=== PATIENT | female | born 1960 | race African-American/Black ===

== ENCOUNTER 2017-10-12 09:08 | Emergency (ER) | payer SELFPAY ==
[~2017-10-12] VITALS: Ht 170.2 cm; Wt 134.0 kg
[2017-10-12] MEDS ORDERED: KETOROLAC 60MG/2ML VIAL IM ONE (11:00)
[2017-10-12 13:40] VITALS: BP 130/68
== END 2017-10-12 13:48 | disposition home or self-care (01) ==
LOC: ER 10:06
DX: M54.31 Sciatica, right side (principal)
CPT/HCPCS: 93971; 96372; 99284; J1885

== ENCOUNTER 2017-12-14 09:09 | Emergency (ER) | payer OTHER ==
[~2017-12-14] VITALS: Ht 172.7 cm; Wt 83.0 kg
[~2017-12-14 09:09] MED LIST: DICL75TA5 MT; GABA-529 MT
[2017-12-14] MEDS ORDERED: SODIUM CHLORIDE 0.9% 1,000 ML IV ONE (10:02)
[2017-12-14] MEDS ORDERED: ACETAMINOPHEN 325MG TABLET PO STA (10:02)
[2017-12-14] MEDS ORDERED: KETOROLAC 30MG/ML VIAL IV STA (10:02)
[2017-12-14 10:19] LABS: HEMATOCRIT. 39.7 % (36.0-48.0); HEMOGLOBIN. 12.9 g/dL (12.0-16.0); MEAN CORPUSCULAR HEMOGLOBIN 25.4 pg (28.0-32.0); MEAN CORPUSCULAR VOLUME 77.8 fL (81.0-99.0); MEAN PLATELET VOLUME 9.5 fl (7.4-10.4); PLATELET 156 x1000/uL (130-400); RED CELL DISTRIBUTION WIDTH 16.6 % (11.6-14.6)
[2017-12-14 10:28] LABS: CHLORIDE 104 mEq/L (98-107); INR 1.1; PROTHROMBIN TIME 11.6 sec (9.4-11.6)
[2017-12-14 11:23] LABS: PLATELET ESTIMATE NORMAL
[2017-12-14 11:54] LABS: CLARITY URINE CLEAR (CLEAR); COLOR URINE ORANGE (YELLOW); KETONES URINE 1+ (NEGATIVE); LEUKOCYTE ESTERASE URINE 1+ (NEGATIVE); NITRITE URINE NEGATIVE (NEGATIVE); OCCULT BLOOD URINE NEGATIVE (NEGATIVE); PH URINE 5.5 (4.5-8.0); PROTEIN URINE 1+ (NEGATIVE); SPECIFIC GRAVITY URINE 1.025 (1.005-1.030)
[2017-12-14 13:04] VITALS: BP 149/80
== END 2017-12-14 13:15 | disposition home or self-care (01) ==
LOC: ER 09:09
DX: B34.9 Viral infection, unspecified (principal); I10 Essential (primary) hypertension; E78.00 Pure hypercholesterolemia, unspecified; M54.30 Sciatica, unspecified side; F17.200 Nicotine dependence, unspecified, uncomplicated
CPT/HCPCS: 36415; 71045; 80053; 81003; 83605; 85025; 85610; 87040; 87086; 93005; 96374; 99285; J1885; J7030; J7040

== ENCOUNTER 2017-12-17 13:50 | Inpatient (IN) | payer OTHER ==
[~2017-12-17] VITALS: Ht 172.7 cm; Wt 123.0 kg
[2017-12-17] MEDS ORDERED: ONDANSETRON HCL 4MG/2ML VIAL IV STA (14:25)
[2017-12-17] MEDS ORDERED: ASPIRIN 81MG TABLET PO ONE (14:30)
[2017-12-17 15:12] LABS: HEMATOCRIT. 36.8 % (36.0-48.0); MEAN CORPUSCULAR HEMOGLOBIN 25.4 pg (28.0-32.0); MEAN CORPUSCULAR VOLUME 77.9 fL (81.0-99.0); RED BLOOD CELL COUNT 4.73 mill/uL (4.2-5.4); RED CELL DISTRIBUTION WIDTH 16.5 % (11.6-14.6)
[2017-12-17 15:18] LABS: CHLORIDE 102 mEq/L (98-107)
[2017-12-17 15:22] LABS: ETHANOL BLOOD < 10 mg/dL
[2017-12-17 15:29] LABS: CREATINE KINASE 123 IU/L (26-192)
[2017-12-17] MEDS ORDERED: IOHEXOL-350 100 ML BOTTLE ONE (16:43)
[2017-12-17 17:24] LABS: INR 1.1; PARTIAL THROMBOPLASTIN TIME 25.9 sec (23.4-31.0); PROTHROMBIN TIME 11.9 sec (9.4-11.6)
[2017-12-17] MEDS ORDERED: LEVOFLOXACIN 750MG PREMIX 150 ML IV ONE (18:30)
[2017-12-17 20:00] VITALS: BP 116/66
[2017-12-17 20:20] VITALS: BP 116/66
[2017-12-17] MEDS ORDERED: ACET650S22 PO (20:44)
[2017-12-17] MEDS ORDERED: SULF-288 PO (20:44)
[2017-12-17] MEDS ORDERED: MAGNESIUM/ALUMINUM HYDROXIDE/SIMETHICONE 30ML UDC PO PRN (20:45)
[2017-12-17] MEDS ORDERED: IPRATROPIUM/ALBUTEROL 0.5-3(2.5)MG/3ML NEB INH PRN (20:45)
[2017-12-17] MEDS ORDERED: CLONIDINE 0.1MG TABLET PO PRN (20:45)
[2017-12-17] MEDS ORDERED: ACETAMINOPHEN 325MG TABLET PO PRN (20:45)
[2017-12-17] MEDS ORDERED: DOCUSATE SODIUM 100MG CAPSULE PO PRN (20:45)
[2017-12-17] MEDS ORDERED: ONDANSETRON 4MG ODT PO PRN (20:45)
[2017-12-17 21:19] LABS: HEPATITIS B SURFACE ANTIGEN NEGATIVE
[2017-12-17 21:47] LABS: HEPATITIS B CORE AB IGM NEGATIVE
[2017-12-17 21:48] LABS: HEPATITIS A AB IGM NEGATIVE (NEGATIVE)
[2017-12-17] MEDS ORDERED: DICL75TA5 PO (22:59)
[2017-12-17] MEDS ORDERED: GABA-529 PO (22:59)
[2017-12-17] MEDS ORDERED: ATOR20TA65 PO (22:59)
[2017-12-17] MEDS ORDERED: DIAZ5TAB4 PO (22:59)
[2017-12-17] MEDS ORDERED: AMLO5TAB88 PO (22:59)
[2017-12-17] MEDS ORDERED: METH4TAB17 PO (22:59)
[2017-12-17] MEDS ORDERED: ASPI-1159 PO (22:59)
[2017-12-17] MEDS ORDERED: D-ME473S8 PO (23:23)
[2017-12-17] MEDS ORDERED: NAPR-681 PO (23:23)
[2017-12-17] MEDS ORDERED: NIAC100T3 PO (23:23)
[2017-12-17] MEDS ORDERED: LEVO50TA PO (23:23)
[2017-12-17] MEDS ORDERED: IBUP-2030 PO (23:23)
[2017-12-17] MEDS ORDERED: TLXL5 PO (23:25)
[2017-12-17] MEDS: HYDROCODONE/ACETAMINOPHEN 5/325MG TABLET PO PRN (23:35)
[2017-12-17 23:45] LABS: CREATINE KINASE 156 IU/L (26-192)
[2017-12-17 23:49] LABS: CREATINE KINASE MB FRACTION 1.9 ng/mL (0.5-3.6)
[2017-12-18] VITALS: BP 102/70
[2017-12-18 04:00] VITALS: BP 117/58
[2017-12-18] MEDS: HYDROCODONE/ACETAMINOPHEN 5/325MG TABLET PO PRN ×2 (04:09→09:40)
[2017-12-18 04:33] LABS: CLARITY URINE CLEAR (CLEAR); COLOR URINE YELLOW (YELLOW); KETONES URINE 1+ (NEGATIVE); LEUKOCYTE ESTERASE URINE NEGATIVE (NEGATIVE); NITRITE URINE NEGATIVE (NEGATIVE); OCCULT BLOOD URINE NEGATIVE (NEGATIVE); PH URINE 5.5 (4.5-8.0); PROTEIN URINE NEGATIVE (NEGATIVE); SPECIFIC GRAVITY URINE 1.035 (1.005-1.030)
[2017-12-18 05:18] LABS: *AMPHETAMINES SCREEN URINE NEGATIVE (NEGATIVE); *BARBITURATES SCREEN URINE NEGATIVE (NEGATIVE); *BENZODIAZEPINES SCREEN URINE NEGATIVE (NEGATIVE); *COCAINE SCREEN URINE NEGATIVE (NEGATIVE); METHADONE URINE SCREEN NEGATIVE (NEGATIVE); OPIATES URINE SCREEN PRESUMTIVE POSITIVE (NEGATIVE)
[2017-12-18 05:19] LABS: CANNABINOID URINE SCREEN NEGATIVE (NEGATIVE); PHENCYCLIDINE URINE SCREEN NEGATIVE (NEGATIVE)
[2017-12-18 07:28] LABS: BASOPHILS % 0.3 % (0.0-2.0); EOSINOPHILS % 2.5 % (0.0-5.0); HEMATOCRIT. 34.6 % (36.0-48.0); HEMOGLOBIN. 11.5 g/dL (12.0-16.0); LYMPHOCYTES % 13.1 % (20.0-50.0); MEAN CORPUSCULAR HEMOGLOBIN 25.7 pg (28.0-32.0); MEAN CORPUSCULAR VOLUME 77.7 fL (81.0-99.0); MEAN PLATELET VOLUME 9.5 fl (7.4-10.4); MONOCYTES % 6.9 % (2.0-8.0); NEUTROPHILS % 77.2 % (40.0-76.0); PLATELET 225 x1000/uL (130-400); RED BLOOD CELL COUNT 4.46 mill/uL (4.2-5.4); RED CELL DISTRIBUTION WIDTH 16.3 % (11.6-14.6)
[2017-12-18 07:47] LABS: CHLORIDE 104 mEq/L (98-107)
[2017-12-18 07:56] LABS: CREATINE KINASE 113 IU/L (26-192); HDL CHOLESTEROL 26 mg/dL (40-59); LDL CHOLESTEROL 90 mg/dL (5-100)
[2017-12-18 08:00] VITALS: BP 127/76
[2017-12-18 08:00] LABS: CREATINE KINASE MB FRACTION 1.5 ng/mL (0.5-3.6)
[2017-12-18] MEDS: ENOXAPARIN 30MG/0.3ML SYR SUBCUT SCH ×2 (08:46→20:40)
[2017-12-18] MEDS: ASPIRIN 81MG EC TABLET PO SCH (08:46)
[2017-12-18 12:00] VITALS: BP 105/76
[2017-12-18] MEDS ORDERED: REGADENOSON 0.4 MG/5 ML IV SCH (12:00)
[2017-12-18 16:00] VITALS: BP 120/78
[2017-12-18] MEDS: LEVOTHYROXINE SODIUM 50MCG TABLET PO SCH (17:27)
[2017-12-18] MEDS: GABAPENTIN 100MG CAPSULE PO SCH (17:27)
[2017-12-18 20:00] VITALS: BP 127/64
[2017-12-18] MEDS: IPRATROPIUM/ALBUTEROL 0.5-3(2.5)MG/3ML NEB HHN SCH (20:33)
[2017-12-18] MEDS: AMLODIPINE 2.5MG TABLET PO SCH (20:39)
[2017-12-19] VITALS: BP 120/72
[2017-12-19] MEDS: IPRATROPIUM/ALBUTEROL 0.5-3(2.5)MG/3ML NEB HHN SCH ×4 (02:17→20:37)
[2017-12-19 04:00] VITALS: BP 95/60
[2017-12-19] MEDS: OMEPRAZOLE 20MG CAPSULE EXTENDED RELEASE PO SCH (06:15)
[2017-12-19] MEDS: LEVOTHYROXINE SODIUM 50MCG TABLET PO SCH (06:16)
[2017-12-19 07:14] LABS: BASOPHILS % 0.4 % (0.0-2.0); HEMOGLOBIN. 11.2 g/dL (12.0-16.0); LYMPHOCYTES % 27.7 % (20.0-50.0); MEAN CORPUSCULAR HEMOGLOBIN 25.5 pg (28.0-32.0); MEAN CORPUSCULAR VOLUME 77.5 fL (81.0-99.0); MEAN PLATELET VOLUME 9.6 fl (7.4-10.4); MONOCYTES % 10.2 % (2.0-8.0); NEUTROPHILS % 53.7 % (40.0-76.0); PLATELET 215 x1000/uL (130-400); RED BLOOD CELL COUNT 4.39 mill/uL (4.2-5.4); RED CELL DISTRIBUTION WIDTH 16.9 % (11.6-14.6)
[2017-12-19 07:33] LABS: CHLORIDE 104 mEq/L (98-107)
[2017-12-19 08:00] VITALS: BP 109/70
[2017-12-19] MEDS ORDERED: REGADENOSON 0.4 MG/5 ML IV ONE (09:49)
[2017-12-19 12:00] VITALS: BP 126/84
[2017-12-19] MEDS: GABAPENTIN 100MG CAPSULE PO SCH (13:24)
[2017-12-19] MEDS: AMLODIPINE 2.5MG TABLET PO SCH ×2 (13:24→20:58)
[2017-12-19] MEDS: ASPIRIN 81MG EC TABLET PO SCH (13:25)
[2017-12-19] MEDS: ENOXAPARIN 30MG/0.3ML SYR SUBCUT SCH ×2 (13:25→20:58)
[2017-12-19 16:00] VITALS: BP 125/74
[2017-12-19 20:00] VITALS: BP 118/77
[2017-12-20] VITALS: BP 117/77
[2017-12-20] MEDS: IPRATROPIUM/ALBUTEROL 0.5-3(2.5)MG/3ML NEB HHN SCH ×3 (02:25→14:23)
[2017-12-20 04:00] VITALS: BP 91/58
[2017-12-20] MEDS: LEVOTHYROXINE SODIUM 50MCG TABLET PO SCH (05:58)
[2017-12-20] MEDS: OMEPRAZOLE 20MG CAPSULE EXTENDED RELEASE PO SCH (05:59)
[2017-12-20 08:00] VITALS: BP 102/73
[2017-12-20] MEDS: GABAPENTIN 100MG CAPSULE PO SCH (08:53)
[2017-12-20] MEDS: ASPIRIN 81MG EC TABLET PO SCH (08:53)
[2017-12-20] MEDS: ENOXAPARIN 30MG/0.3ML SYR SUBCUT SCH (08:53)
[2017-12-20] MEDS: AMLODIPINE 2.5MG TABLET PO SCH (08:54)
[2017-12-20 12:00] VITALS: BP 106/79
[2017-12-20] MEDS ORDERED: AMLO2.5T45 PO (14:39)
[2017-12-20] MEDS ORDERED: GABA-529 PO (14:39)
[2017-12-20] MEDS ORDERED: OMEP20CA10 PO (14:39)
[2017-12-20] MEDS ORDERED: LEVO50TA8 PO (14:39)
[2017-12-20] MEDS ORDERED: ASPI-1158 PO (14:39)
[2017-12-20 16:46] VITALS: BP 117/80
== END 2017-12-20 18:09 | disposition home or self-care (01) | DRG 391 ==
LOC: ER 13:50 → ENRESERV 16:03 → 5WST 18:27 → EDBEDREQ 18:31
PROVIDERS: ADMIT Internal Medicine; ATTEND Internal Medicine
DX: K21.9 Gastro-esophageal reflux disease without esophagitis (principal); J96.00 Acute respiratory failure, unspecified whether with hypoxia or hypercapnia; J98.11 Atelectasis; Z68.41 Body mass index [BMI] 40.0-44.9, adult; J84.9 Interstitial pulmonary disease, unspecified; I27.21 Secondary pulmonary arterial hypertension; K76.0 Fatty (change of) liver, not elsewhere classified; E78.5 Hyperlipidemia, unspecified; E03.9 Hypothyroidism, unspecified; I10 Essential (primary) hypertension; M54.30 Sciatica, unspecified side; D50.9 Iron deficiency anemia, unspecified; R74.0 Nonspecific elevation of levels of transaminase and lactic acid dehydrogenase [LDH]; M19.90 Unspecified osteoarthritis, unspecified site; E78.00 Pure hypercholesterolemia, unspecified; F17.200 Nicotine dependence, unspecified, uncomplicated; E66.9 Obesity, unspecified; F19.90 Other psychoactive substance use, unspecified, uncomplicated; G89.29 Other chronic pain; M54.9 Dorsalgia, unspecified; J47.9 Bronchiectasis, uncomplicated; Z82.49 Family history of ischemic heart disease and other diseases of the circulatory system; E11.9 Type 2 diabetes mellitus without complications
CPT/HCPCS: 36415; 71045; 71275; 76700; 78452; 80048; 80053; 80061; 80305; 81003; 82550; 82553; 83605; 83735; 83880; 84443; 84484; 85025; 85610; 85730; 86705; 86709; 86803; 87040; 87086; 87340; 93005; 93017; 93970; 96365; 96375; 99285; A9500; G0482; J1650; J1956; J2405; J2785; J7620; Q0162; Q9967

== ENCOUNTER 2020-09-13 18:12 | Emergency (ER) | payer MEDICAID, OTHER ==
[~2020-09-13] VITALS: Ht 170.2 cm; Wt 131.0 kg
[~2020-09-13 18:12] MED LIST changes: +AMLO2.5T45 PO; +ASPI-1406 PO; -DICL75TA5 MT; -GABA-529 MT; +GABA-529 PO; +LEVO50TA8 PO; +OMEP20CA14 PO
[2020-09-13] MEDS ORDERED: ONDANSETRON HCL 4MG/2ML INJ IV STA (19:07)
[2020-09-13] MEDS ORDERED: SODIUM CHLORIDE 0.9% 1,000 ML IV ONE (19:15)
[2020-09-13 20:05] VITALS: BP 177/87
[2020-09-13 20:12] LABS: CLARITY URINE CLEAR (CLEAR); COLOR URINE YELLOW (YELLOW); KETONES URINE NEGATIVE (NEGATIVE); LEUKOCYTE ESTERASE URINE NEGATIVE (NEGATIVE); NITRITE URINE NEGATIVE (NEGATIVE); OCCULT BLOOD URINE NEGATIVE (NEGATIVE); PROTEIN URINE NEGATIVE (NEGATIVE); SPECIFIC GRAVITY URINE 1.006 (1.005-1.030); UROBILINOGEN URINE 0.2 E.U./dL (0.2-1.0)
[2020-09-13 20:13] LABS: BASOPHILS % 0.7 % (0.0-2.0); EOSINOPHILS % 2.7 % (0.0-5.0); HEMATOCRIT. 36.3 % (36.0-48.0); HEMOGLOBIN. 12.1 g/dL (12.0-16.0); LYMPHOCYTES % 32.7 % (20.0-50.0); MEAN CORPUSCULAR HEMOGLOBIN 26.2 pg (28.0-32.0); MEAN CORPUSCULAR VOLUME 78.7 fL (81.0-99.0); MEAN PLATELET VOLUME 9.2 fl (7.4-10.4); MONOCYTES % 6.9 % (2.0-8.0); PLATELET 165 x1000/uL (130-400); RED BLOOD CELL COUNT 4.61 mill/uL (4.2-5.4); RED CELL DISTRIBUTION WIDTH 16.2 % (11.6-14.6)
[2020-09-13 20:19] LABS: CHLORIDE 106 mEq/L (98-107)
[2020-09-13] MEDS ORDERED: ONDA4TAB5 MT (20:45)
== END 2020-09-13 23:54 | disposition home or self-care (01) ==
LOC: ER 18:12
DX: R11.2 Nausea with vomiting, unspecified (principal); E78.00 Pure hypercholesterolemia, unspecified; I10 Essential (primary) hypertension; Z86.39 Personal history of other endocrine, nutritional and metabolic disease
CPT/HCPCS: 36415; 80053; 81003; 85025; 93005; 96361; 96374; 99284; J2405; J7030

== ENCOUNTER 2021-10-25 06:44 | Emergency (ER) | payer MEDICAID, OTHER ==
[~2021-10-25] VITALS: Ht 167.6 cm; Wt 131.6 kg
[~2021-10-25 06:44] MED LIST changes: +ACET-2708 MT; +NAPR-1176 MT; +ONDA4TAB5 MT
[2021-10-25] MEDS ORDERED: ONDANSETRON HCL 4MG/2ML INJ IV STA (07:24)
[2021-10-25] MEDS ORDERED: MORPHINE SULFATE 4 MG/ML CPJ (NOT FOR IM USE) IV STA (07:24)
[2021-10-25 08:04] LABS: CHLORIDE 109 mEq/L (98-107)
[2021-10-25 08:08] LABS: BASOPHILS % 0.2 % (0.0-2.0); EOSINOPHILS % 0.4 % (0.0-5.0); HEMATOCRIT. 35.8 % (36.0-48.0); HEMOGLOBIN. 11.4 g/dL (12.0-16.0); LYMPHOCYTES % 10.8 % (20.0-50.0); MEAN CORPUSCULAR HEMOGLOBIN 25.1 pg (28.0-32.0); MEAN CORPUSCULAR VOLUME 78.6 fL (81.0-99.0); MEAN PLATELET VOLUME 9.5 fl (7.4-10.4); NEUTROPHILS % 82.6 % (40.0-76.0); PLATELET 212 x1000/uL (130-400); RED BLOOD CELL COUNT 4.55 mill/uL (4.2-5.4); RED CELL DISTRIBUTION WIDTH 18.1 % (11.6-14.6)
[2021-10-25] MEDS ORDERED: LEVOFLOXACIN 750MG PREMIX 150 ML IV ONE (09:30)
[2021-10-25 09:57] LABS: CLARITY URINE CLEAR (CLEAR); COLOR URINE YELLOW (YELLOW); KETONES URINE NEGATIVE (NEGATIVE); LEUKOCYTE ESTERASE URINE NEGATIVE (NEGATIVE); NITRITE URINE NEGATIVE (NEGATIVE); OCCULT BLOOD URINE TRACE (NEGATIVE); PH URINE 8.5 (4.5-8.0); PROTEIN URINE NEGATIVE (NEGATIVE); SPECIFIC GRAVITY URINE 1.012 (1.005-1.030); UROBILINOGEN URINE 0.2 E.U./dL (0.2-1.0)
[2021-10-25] MEDS ORDERED: MORPHINE SULFATE 4 MG/ML CPJ (NOT FOR IM USE) IV ONE (10:00)
[2021-10-25 11:00] VITALS: BP 151/84
== END 2021-10-25 12:11 | disposition short-term general hospital (02) ==
LOC: ER 06:53
DX: N12 Tubulo-interstitial nephritis, not specified as acute or chronic (principal); N13.30 Unspecified hydronephrosis; I10 Essential (primary) hypertension; E03.9 Hypothyroidism, unspecified; E78.5 Hyperlipidemia, unspecified
CPT/HCPCS: 36415; 74176; 80053; 81003; 83690; 85025; 96365; 96375; 96376; 99285; J1956; J2270; J2405

== ENCOUNTER 2023-02-18 09:50 | Emergency (ER) | payer OTHER ==
[~2023-02-18] VITALS: Ht 167.6 cm; Wt 104.0 kg
[2023-02-18 10:06] VITALS: O2SAT 99
[2023-02-18] MEDS ORDERED: LIDO700A15 TP (10:14)
[2023-02-18] MEDS ORDERED: NAPR-1176 MT (10:14)
[2023-02-18] MEDS ORDERED: VALA100044 MT (10:14)
[2023-02-18] MEDS ORDERED: KETOROLAC 30MG/ML VIAL IM ONE (10:15)
[2023-02-18] MEDS ORDERED: VALACYCLOVIR HCL 500MG TABLET PO SCH (10:15)
[2023-02-18 11:21] VITALS: BP 145/89; PULSE 95; RESP 20; TEMP 98.6
== END 2023-02-18 11:50 | disposition home or self-care (01) ==
LOC: ER 09:50
DX: B02.9 Zoster without complications (principal); R21 Rash and other nonspecific skin eruption; E78.00 Pure hypercholesterolemia, unspecified; I10 Essential (primary) hypertension; Z79.899 Other long term (current) drug therapy
CPT/HCPCS: 96372; 99283; J1885; Z7610

== ENCOUNTER 2023-03-29 13:23 | Emergency (ER) | payer OTHER ==
[~2023-03-29] VITALS: Ht 170.2 cm; Wt 129.7 kg
[~2023-03-29 13:23] MED LIST changes: +LIDO700A15 TP; +VALA100044 MT
[2023-03-29 13:43] VITALS: BP 166/90; PULSE 91; RESP 16; O2SAT 97
[2023-03-29 14:30] VITALS: TEMP 98.2
[2023-03-29] MEDS ORDERED: ACETAMINOPHEN 325MG TABLET PO NR (14:30)
[2023-03-29] MEDS ORDERED: ACET-2708 MT (16:06)
== END 2023-03-29 16:20 | disposition home or self-care (01) ==
LOC: ER 13:23
DX: M25.562 Pain in left knee (principal); I10 Essential (primary) hypertension; E78.00 Pure hypercholesterolemia, unspecified; Z79.899 Other long term (current) drug therapy; Z79.82 Long term (current) use of aspirin; Z86.39 Personal history of other endocrine, nutritional and metabolic disease
CPT/HCPCS: 99283; 73560; L1830

== ENCOUNTER 2024-04-17 14:00 | Emergency (ER) | payer OTHER ==
[~2024-04-17] VITALS: Ht 162.6 cm; Wt 136.0 kg
[2024-04-17 14:27] VITALS: O2SAT 98
[2024-04-17 14:54] LABS: HEMATOCRIT. 37.9 % (36.0-48.0); HEMOGLOBIN. 12.1 g/dL (12.0-16.0); MEAN CORPUSCULAR HEMOGLOBIN 25.3 pg (28.0-32.0); MEAN CORPUSCULAR HGB CONC 31.9 g/dL (31.0-37.0); MEAN CORPUSCULAR VOLUME 79.2 fL (81.0-99.0); MEAN PLATELET VOLUME 9.1 fl (7.4-10.4); PLATELET 192 x1000/uL (130-400); RED BLOOD CELL COUNT 4.78 mill/uL (4.2-5.4); RED CELL DISTRIBUTION WIDTH 17.2 % (11.6-14.6); WHITE BLOOD COUNT 4.7 x1000/uL (4.5-11.0)
[2024-04-17 15:00] LABS: DIFFERENTIAL COMMENT 1
[2024-04-17 15:07] LABS: CHLORIDE 107 mEq/L (98-107); POTASSIUM 3.6 mEq/L (3.5-5.1); SODIUM 141 mEq/L (136-145)
[2024-04-17 15:08] LABS: CARBON DIOXIDE 26 mEq/L (21-32)
[2024-04-17 15:09] LABS: CALCIUM 9.6 mg/dL (8.7-10.4)
[2024-04-17 15:13] LABS: CREATININE 0.7 mg/dL (0.6-1.0); GLUCOSE 102 mg/dL (70-105)
[2024-04-17 15:14] LABS: UREA NITROGEN BLOOD 10 mg/dL (9-23)
[2024-04-17 15:15] LABS: ALANINE AMINOTRANSFERASE 17 IU/L (10-49); ALBUMIN 4.4 g/dL (3.2-4.8); ASPARTATE AMINOTRANSFERASE 25 IU/L (<34)
[2024-04-17 15:16] LABS: BILIRUBIN DIRECT 0.3 mg/dL (<=3.0); PROTEIN TOTAL 7.9 g/dL (6.0-8.3)
[2024-04-17 15:17] LABS: TROPONIN I HIGH SENSITIVITY < 4 ng/L (3.0-34)
[2024-04-17] MEDS: ACETAMINOPHEN 500MG TABLET PO ONE (15:28)
[2024-04-17] MEDS: ONDANSETRON HCL 4MG TABLET PO ONE (15:28)
[2024-04-17 15:42] LABS: CLARITY URINE CLEAR (CLEAR); COLOR URINE YELLOW (YELLOW); GLUCOSE URINE NEGATIVE (NEGATIVE); KETONES URINE NEGATIVE (NEGATIVE); LEUKOCYTE ESTERASE URINE NEGATIVE (NEGATIVE); NITRITE URINE NEGATIVE (NEGATIVE); OCCULT BLOOD URINE NEGATIVE (NEGATIVE); PH URINE 6.5 (4.5-8.0); PROTEIN URINE NEGATIVE (NEGATIVE); SPECIFIC GRAVITY URINE 1.021 (1.005-1.030); UROBILINOGEN URINE 0.2 E.U./dL (0.2-1.0)
[2024-04-17 16:29] LABS: ANISOCYTOSIS 1+; MICROCYTOSIS 1+; PLATELET ESTIMATE NORMAL
[2024-04-17] MEDS ORDERED: OMEP20TA15 MT (16:55)
[2024-04-17 17:20] VITALS: BP 148/87; PULSE 66; RESP 16; TEMP 36.61404; O2SAT 98
== END 2024-04-17 17:34 | disposition home or self-care (01) ==
LOC: ER 14:06
DX: R10.13 Epigastric pain (principal); R11.2 Nausea with vomiting, unspecified; Z79.899 Other long term (current) drug therapy; Z79.82 Long term (current) use of aspirin; Z79.1 Long term (current) use of non-steroidal anti-inflammatories (NSAID); Z79.624 Long term (current) use of inhibitors of nucleotide synthesis
CPT/HCPCS: 99284; 74176; 80076; 80048; 81003; 83690; 85025; 84484; 36415; 93005; Q0162

== ENCOUNTER 2025-02-09 13:47 | Emergency (ER) | payer MEDICARE, MEDICAID ==
[~2025-02-09 13:47] MED LIST changes: +LIDO-53 TP; -LIDO700A15 TP; +OMEP20TA15 MT
[2025-02-09] MEDS ORDERED: NAPR-1176 MT (14:45)
[2025-02-09] MEDS: KETOROLAC 30MG/ML VIAL IM ONE (14:45)
[2025-02-09 15:46] VITALS: BP 140/81; PULSE 76; RESP 16; O2SAT 97
== END 2025-02-09 15:47 | disposition home or self-care (01) ==
LOC: ER 13:59
DX: M17.0 Bilateral primary osteoarthritis of knee (principal); Z79.1 Long term (current) use of non-steroidal anti-inflammatories (NSAID); Z79.624 Long term (current) use of inhibitors of nucleotide synthesis; Z79.82 Long term (current) use of aspirin; Z79.899 Other long term (current) drug therapy
CPT/HCPCS: 99283; 96372; J1885